=== PATIENT | male | born 1990 | race Two or more races ===

== ENCOUNTER 2019-02-13 09:01 | Emergency (ER) | payer BC ==
[~2019-02-13] VITALS: Ht 200.7 cm; Wt 111.0 kg
[2019-02-13] MEDS: ACETAMINOPHEN 650MG/20.3ML UDC PO ONE (09:44)
[2019-02-13 11:29] VITALS: BP 129/88
== END 2019-02-13 11:35 | disposition home or self-care (01) ==
LOC: ER 09:01
DX: S09.8XXA Other specified injuries of head, initial encounter (principal); X58.XXXA Exposure to other specified factors, initial encounter; Y93.89 Activity, other specified; Y92.89 Other specified places as the place of occurrence of the external cause; Y99.8 Other external cause status
CPT/HCPCS: 99284